=== PATIENT | female | born 1985 | race Caucasian/White ===

== ENCOUNTER 2020-04-20 19:30 | Inpatient (IN) | payer OTHER ==
--- OUTSIDE RECORDS SUMMARY | 2020-04-20 20:08 | XMS ---
:01/20/1988 Author Organization [facility] Support Name Relationship Address Phone BAR RADHA STEVENURANT Unavailable [address] [place] [address] SABI SAMUELS FAMILY/OTHER [address] [place] [address] Re-disclosure Warning The records that you are about to access may contain information from federally- assisted alcohol or drug abuse programs. If such information is present, then the following federally mandated warning applies: This information has been disclosed to you from records protected by federal confidentiality rules (42 CFR part 2). The federal rules prohibit you from making any further disclosure of this information unless further disclosure is expressly permitted by the written consent of the person to whom it pertains or as otherwise permitted by 42 CFR part 2. A general authorization for the release of medical or other information is NOT sufficient for this purpose. The Federal rules restrict any use of the information to criminally investigate or prosecute any alcohol or drug abuse patient.The records that you are about to access may contain highly sensitive health information, the redisclosure of which is protected by Article 27-F of the [facility] Public Health law. If you continue you may haveaccess to information: Regarding HIV / AIDS; Provided by facilities licensed or operated by the [facility] Office of Mental Health; or Provided by the [facility] Office for People With Developmental Disabilities. If such information is present, then the following [facility] mandated warning applies: This information has been disclosed to you from confidential records which are protected by state law. State law prohibits you from making any further disclosure of this information without the specific written consent of the person to whom it pertains, or as otherwise permitted by law. Any unauthorized further disclosure in violation of state law may result in a fine or mcfp sentence or both. A general authorization for the release of medical or other information is NOT sufficient authorization for further disclosure. Insurance Providers Payer name Policy type Policy ID Covered Covered libertarian's Policy P elena / Coverage libertarian ID relationship to [employer] Inf ormation type guerrero [facility] MEDICAID [id number] O
[2020-04-20] MEDS ORDERED: ONDANSETRON 4 MG/2 ML VIAL IVPB ONE (20:34)
[2020-04-20] MEDS ORDERED: METOCLOPRAMIDE HCL INJECTION 10 MG/2 ML VIAL IVPUSH ONE (20:36)
[2020-04-20] MEDS ORDERED: PANTOPRAZOLE SODIUM 40 MG/100 ML BAG IVPB ONE ×2 (20:36→21:02)
[2020-04-20] MEDS ORDERED: LACTATED RINGERS SOLUTION 1,000 ML IV SCH (20:45)
--- NOTE | 2020-04-20 20:54 | PDOC ---
Documentation entered by Kevin Khalil SCRIBE, acting as scribe for Joceline Spaulding MD. Joceline Spaulding MD: This documentation has been prepared by the scribe, Kevin Thorpe SCRIBE, under my direction and personally reviewed by me in its entirety. I confirm that the documentation accurately reflects all work, treatment, procedures, and medical decision making performed by me. Attending Attestation - Resident Resident Name: LeightonAbdias - ED Attending Attestation I have performed the following: I have examined & evaluated the patient, The case was reviewed & discussed with the resident, I agree w/resident's findings & plan, Exceptions are as noted - HPI HPI: 04/20/20 21:10 The patient is a 35 year old female with a significant past medical history of epigastric balloon placement 2 month ago (Dr. Hayes) who presents to the emergency department for evaluation of nausea/vomiting that began today. The patient reports abdominal pain and two episodes of diarrhea today. The patient denies chest/abdominal/back pain, cough, and shortness of breath. Denies fever, chills, or any symptoms. Denies any other symptoms. Allergies: NKA Surgical Hx: Epigastric balloon placement 2 month ago (Dr. Hayes) PCP: Dr. Betancourt - Physicial Exam PE: 04/20/20 20:37 GENERAL: Well developed, well nourished. HEENT: Normocephalic, atraumatic. PERRLA, EOMI. No conjunctival pallor. Sclera are non- icteric. Moist mucous membranes. Oropharynx is clear. NECK: Supple. Full ROM. No JVD. Carotid pulses 2+ and symmetric, without bruits. CARDIOVASCULAR: Regular rate and rhythm. No murmurs, rubs, or gallops. PULMONARY: No evidence of respiratory distress. Lungs clear to auscultation bilaterally. No wheezing, rales or rhonchi. ABDOMINAL: +epigastric tenderness Soft. No organomegaly. Normoactive bowel sounds. MUSCULOSKELETAL: Normal range of motion at all joints. No bony deformities or tenderness. No CVA tenderness. EXTREMITIES: No cyanosis. No clubbing. No edema. No calf tenderness. SKIN: Warm and dry. Normal capillary refill. No rashes. No jaundice. NEUROLOGICAL: Alert, awake, appropriate. Cranial nerves 2-12 intact. No deficits to light touch and temperature in face, upper extremities and lower extremities. No motor deficits in the in face, upper extremities and lower extremities. Normoreflexic in the upper and lower extremities. Normal speech. Toes are down-going bilaterally. Gait is normal without ataxia. PSYCHIATRIC: Cooperative. Good eye contact. Appropriate mood and affect. - Medical Decision Making 04/20/20 21:40 pt given IVF, zofran, protonix and will receive ct scan with contrast 04/21/20 00:22 pt was given po contrast just prior to ct scan . IMPRESSION of ct scan abdomen/pelvis w contrast : there is concern for gastric outlet obstruction because there an inflated balloon is present in the stomach over distended with dense oral contrast seen in the gastric fundus, no acute diverticulitis IUD in place K=2.9 and she was given Kdur case discussed with Dr Gerardo Artis who is covering for Dr Hayes. Earlier I left a message on Dr Hayes's cellphone pt is receiving IVF,zofran,protonix,reglan and is now NPO Admitted to med/surg 04/21/20 00:33 Discharge - Discharge Information Problems reviewed: Yes Clinical Impression/Diagnosis: Gastric outlet obstruction Condition: Stable - Follow up/Referral - Patient Discharge Instructions - Post Discharge Activity
[2020-04-20 20:55] LABS: BASO % 0.6 % (0-2.0); EOS % 1.2 % (0-4.5); HEMATOCRIT 42.6 % (32.4-45.2); HEMOGLOBIN 14.2 GM/dL (10.7-15.3); LYMPH % 24.8 % (8-40); MCH 28.6 pg (25.7-33.7); MCHC 33.3 g/dl (32.0-36.0); MEAN PLT VOLUME 11.4 fl (7.5-11.1); MONO % 7.4 % (3.8-10.2); PLATELET COUNT 165 K/MM3 (134-434); RBC 4.96 M/mm3 (3.60-5.2); RDW 15.7 % (11.6-15.6); WHITE BLOOD COUNT 7.6 K/mm3 (4.0-10.0)
--- NOTE | 2020-04-20 21:01 | PDOC ---
History of Present Illness - General Chief Complaint: Pain Stated Complaint: EVALUATION Time Seen by Provider: 04/20/20 20:31 History Source: Patient Exam Limitations: No Limitations - History of Present Illness Initial Comments: 04/20/20 20:52 35F s/p bariatric procedure (gastric balloon in December [address] Hayes) sent in by Dr. Hayes for worsening epigastric pain, n/v, and po intolerance. Symptoms been around since procedure but were unbearable today. Endorses poor PO intake and dizziness. Has not had etoh in a long time. Past History - Medical History Allergies/Adverse Reactions: Allergies Allergy/AdvReac Type Severity Reaction Status Date / Time No Known Allergies Allergy Verified 04/20/20 20:59 - Reproductive History Is Patient Now?: No - Psycho-Social/Smoking History Smoking History: Current every day smoker Number of Cigarettes Smoked Daily: 4 Information on smoking cessation initiated: Yes - Substance Abuse Hx (Audit-C & DAST Scrn) How often the patient has a drink containing alcohol: Never Score: In Men: 4 or > Positive; In Women: 3 or > Positive: 0 Screen Result (Pos requires Nsg. Audit-10AR): Negative In the last yr the pt used illegal drug/Rx for NonMed reason: No Score: Yes response is considered Positive: 0 Screen Result (Positive result requires Nsg. DAST-10): Negative Review of Systems - Review of Systems Comments:: CONSTITUTIONAL: Denies F / C HEENT: + lightheadedness. Denies headache, sore throat, rhinorrhea RESP: Denies SOB, cough CARD: Denies chest pain GI: + epigastric pain, n/v. Denies diarrhea, bloody stool : Denies dysuria, hematuria, frequency. Denies vaginal bleeding or discharge. NEURO: Denies numbness, tingling, weakness MSK: Denies back pain SKIN: Denies rashes *Physical Exam - Vital Signs Last Vital Signs Temp Pulse Resp BP Pulse Ox 98.1 F 90 20 107/75 100 04/20/20 19:48 04/20/20 19:48 04/20/20 19:48 04/20/20 19:48 04/20/20 19:48 - Physical Exam GEN: Well appearing, NAD, comfortable. AAOx3. HEENT: NC/AT, EOMI, PERRL. Normal voice. Supple neck w/ FROM. CV: S1/S2, RRR, no m/r/g LUNG: CTAB, no wheezes, crackles, rales, rhonchi. GI: normoactive BS, nondistended, epigastric tenderness w/ guarding. MSK: No obvious deformities of all extremities. SKIN: Warm, dry, no rashes appreciated. PSYCH: Normal mood and affect. pleasant. NEURO: Moving all extremities well. ED Treatment Course - LABORATORY CBC & Chemistry Diagram: 04/20/20 20:44 04/20/20 20:44 Medical Decision Making - Medical Decision Making 35F sent in by Dr. Hayes for evaluation of acute worsening of chronic epigastric pain, n/v. Severely reduced PO intake. Lightheadedness. Sx existed after bariatric procedure in December 2019 but were milder. Epigastric TTP. Lightheadedness most likely 2/2 decreased PO intake and vomiting. - CBC, CMP, Lipase, - CT A/P - fluids, antiemetics, and protonix - EKG - admit 04/20/20 21:26 EKG 21:25 HR 67, NSR, interval and axis nl, no LEATHA/D, flat Ts III, aVF, and V3; poor baseline for V3-V6. 04/20/20 22:30 Pt was signed out to PM team for further management Discharge - Discharge Information Problems reviewed: Yes Clinical Impression/Diagnosis: Gastric outlet obstruction Condition: Stable - Follow up/Referral Referrals: Shruthi Betancourt MD [Primary Care Provider] - - Patient Discharge Instructions - Post Discharge Activity
[2020-04-20 21:21] LABS: ALBUMIN 4.1 g/dl (3.4-5.0); BILIRUBIN,TOTAL 0.5 mg/dL (0.2-1); BLOOD UREA NITROGEN 16.2 mg/dL (7-18); CALCIUM 9.4 mg/dL (8.5-10.1); TOT PROT 8.3 g/dl (6.4-8.2)
[2020-04-20] MEDS ORDERED: POTASSIUM CHLORIDE 20 MEQ PREMIX IVPB 100 ML IVPB ONE (21:31)
[2020-04-20 21:32] LABS: POTASSIUM 2.9 mmol/L (3.5-5.1)
--- NOTE | 2020-04-20 22:27 | PDOC ---
*Physical Exam - Vital Signs Last Vital Signs Temp Pulse Resp BP Pulse Ox 98.1 F 90 20 107/75 100 04/20/20 19:48 04/20/20 19:48 04/20/20 19:48 04/20/20 19:48 04/20/20 19:48 ED Treatment Course - LABORATORY CBC & Chemistry Diagram: 04/20/20 20:44 04/20/20 20:44 - ADDITIONAL ORDERS Additional order review: Laboratory Results 04/20/20 04/20/20 20:44 20:44 Sodium 134 L Potassium 2.9 L* Chloride 88 L Carbon Dioxide 37 H Anion Gap 8 BUN 16.2 Creatinine 1.0 Est GFR (CKD-EPI)AfAm 84.53 Est GFR (CKD-EPI)NonAf 72.93 Random Glucose 88 Calcium 9.4 Total Bilirubin 0.5 AST 23 ALT 36 Alkaline Phosphatase 61 Total Protein 8.3 H Albumin 4.1 Lipase 149 Serum , Qual Negative 04/20/20 20:44 RBC 4.96 MCV 86.0 MCHC 33.3 RDW 15.7 H MPV 11.4 H Neutrophils % 66.0 Lymphocytes % 24.8 Monocytes % 7.4 Eosinophils % 1.2 Basophils % 0.6 - Medications Given in the ED: ED Medications Discontinued Medications Generic Name Dose Route Start Last Admin Trade Name Freq PRN Reason Stop Dose Admin Pantoprazole Sodium 40 mg in 100 mls @ 200 mls/hr 04/20/20 20:36 04/20/20 21:34 Protonix 40mg Ivpb (Pre-Docked) IVPB 04/20/20 21:05 200 mls/hr ONCE ONE Administration Metoclopramide HCl 10 mg 04/20/20 20:36 04/20/20 21:09 Reglan Injection - IVPUSH 04/20/20 20:37 10 mg ONCE ONE Administration Ondansetron HCl 4 mg 04/20/20 20:34 04/20/20 21:09 Zofran Injection IVPB 04/20/20 20:35 4 mg ONCE ONE Administration Medical Decision Making - Medical Decision Making 04/20/20 22:25 35F s/p bariatric procedure (gastric balloon in December [address] Hayes) sent in by Dr. Hayes for worsening epigastric pain, n/v, and po intolerance. Symptoms been around since procedure but were unbearable today. Endorses poor PO intake and dizziness. Epigastric TTP K 2.9 -Repleted []CTAP>Lantin, likely admit 04/20/20 23:21 CTAP: inflated balloon is present in the stomach that is over distended with dense oral contrast seen in the gastric fundus. Hyperdense oral contrast in gastic antrum is due to recent intake of small amount of oral contrast that is not extending to gastric antrum or beyond level of balloon suggestive of obstruction at level of balloon. Diverticulosis coli without evidence of acute diverticulitis. IUD in place. Prominent vessels in lower pelvis suggestive of pelvic venous congestion syndrome. Dr Spaulding spoke with Dr Gerardo Artis Concern for gastric outlet obstruction Admit Discharge - Discharge Information Problems reviewed: Yes Clinical Impression/Diagnosis: Gastric outlet obstruction Condition: Stable - Admission Yes - Follow up/Referral Referrals: Shruthi Betancourt MD [Primary Care Provider] - - Patient Discharge Instructions - Post Discharge Activity
[2020-04-20] MEDS ORDERED: KCL 10 MEQ IVPB 20 MEQ/200 ML INFUS.BAG IVPB ONE (22:41)
[2020-04-20] MEDS: KCL 10 MEQ IVPB 10 MEQ/100 ML INFUS.BAG IVPB SCH ×2 (23:09→23:29)
[2020-04-20] MEDS ORDERED: POTASSIUM CHLORIDE TABS 20 MEQ TABLET.ER (FP) PO ONE ×2 (23:20→23:30)
[2020-04-21] MEDS ORDERED: DEXTROSE 5%-LACTATED RINGERS 1,000 ML IV SCH (00:15)
--- NOTE | 2020-04-21 00:33 | PN ---
Teaching Attending Note Name of Resident: Carolyn Velásquez ATTENDING PHYSICIAN STATEMENT I saw and evaluated the patient. I reviewed the resident's note and discussed the case with the resident. I agree with the resident's findings and plan as documented. SUBJECTIVE: 35yoF with obesity s/p intragastric balloon 01/11/[address] Hayes who presents with vomiting and lightheadedness. Patient reports she has had daily emesis since the procedure, usually once in the mornings that looked like undigested food. Yesterday she had worsening abdominal pain and increasing frequency of emesis, was unable to tolerate sips of fluids. [place] lightheaded while at work but no syncope, shortness of breath, fevers, or diarrhea. Last BM about 4 days ago which is normal for her. Notes about 60lb weight loss since the procedure, initial plan was to remove the balloon after 6 months. Labs notable for sodium 134, potassium 2.9. CT abd/pelvis with PO and IV contrast showed over distended stomach wtih inflated balloon and dense oral contrast in the gastric fundus. Received Reglan and Zofran with improvement in nausea and vomiting. ED discussed case with GI, patient admitted for management of gastric outlet obstruction. OBJECTIVE: Vital Signs - 24 hr 04/20/20 04/20/20 04/21/20 19:48 22:44 03:00 Temperature 98.1 F Pulse Rate 90 Pulse Rate [ 71 76 Right Radial] Respiratory 20 18 Rate Blood Pressure 107/75 Blood Pressure 104/68 98/67 [Left Arm] O2 Sat by Pulse 100 100 96 Oximetry (%) EXAM Gen: awake, alert, NAD HEENT: MMM CV: RRR, no MRG Resp: CTAB, unlabored Abd: Soft, NT, ND. +BS throughout. Balloon palpable epigastric area Ext: no edema Derm: No rash Psych: AOx3 Laboratory Results - last 24 hr 04/20/20 04/20/20 04/20/20 20:44 20:44 20:44 WBC 7.6 RBC 4.96 Hgb 14.2 Hct 42.6 MCV 86.0 MCH 28.6 MCHC 33.3 RDW 15.7 H Plt Count 165 MPV 11.4 H Absolute Neuts (auto) 5.0 Neutrophils % 66.0 Lymphocytes % 24.8 Monocytes % 7.4 Eosinophils % 1.2 Basophils % 0.6 Nucleated RBC % 0 Sodium 134 L Potassium 2.9 L* Chloride 88 L Carbon Dioxide 37 H Anion Gap 8 BUN 16.2 Creatinine 1.0 Est GFR (CKD-EPI)AfAm 84.53 Est GFR (CKD-EPI)NonAf 72.93 Random Glucose 88 Calcium 9.4 Total Bilirubin 0.5 AST 23 ALT 36 Alkaline Phosphatase 61 Total Protein 8.3 H Albumin 4.1 Lipase 149 Serum , Qual Negative Imaging reviewed in chart ASSESSMENT AND PLAN: 35yoF with obesity s/p intragastric balloon 01/11/[address] Hayes who presents with vomiting and lightheadedness, admitted with gastric outlet obstruction. Gastric outlet obstruction secondary to intragastric balloon Acute worsening of chronic nausea/vomiting Vomiting resolved s/p antiemetics Patient prefers to have the balloon removed - NPO - Zofran PRN - continue IVF - GI consulted Hypokalemia In setting of acute on chronic emesis s/p potassium in ED - rpt K in AM - check mag level - replete as needed DVT ppx: SCD pending possible procedure
--- OUTSIDE RECORDS SUMMARY | 2020-04-21 01:25 | XMS ---
:1985 Demographics Address [address] [place] [address] Preferred Language Unknown Marital Status Unknown Holiness Affiliation NO Race WHH Ethnic Group Unknown Author Organization [facility] Support Name Relationship Address Phone BAR RADHA GORDON Unavailable [address] [place] [address] SABI SAMUELS FAMILY/OTHER [address] [place] [address] Re-disclosure Warning The records that you are [...] is protected by Article 27-F of the [facility] Public Health law. If you continue you may haveaccess to information: Regarding HIV / AIDS; Provided by facilities licensed or operated by the [facility] Office of Mental Health; or Provided by the [facility] Office for People With Developmental Disabilities. If such information is present, then the following [facility] mandated warning applies: This information has been [...] law may result in a fine or mcc sentence or both. A general authorization for the release of medical or other information is NOT sufficient authorization for further disclosure. Insurance Providers Payer name Policy type Policy ID Covered Covered democrat's Policy P elena / Coverage democrat ID relationship to [employer] Inf ormation type guerrero [facility] MEDICAID [id number] O
--- NOTE | 2020-04-21 03:16 | HP ---
CHIEF COMPLAINT: nausea and vomiting HISTORY OF PRESENT ILLNESS: Sandro Hermosillo is a 35 year old woman no prior PMH who is presenting with worsening nausea and vomiting. She states that since undergoing epigastric balloon placement for weight loss with Dr. Hayes in December 2019 she has been vomiting after at least 1 meal per day, and has lost 65 pounds, currently at her goal weight. However, she reports that yesterday her nausea and vomiting worsened, and she has not been able to keep down her meals for the past 2 days. She has felt lightheaded, very dehydrated, and like she was going to 'pass out'. Reports no falls. Denies fever, chills, headache, abdominal pain, melena, hematochezia. She has been taking ondansetron, metoclopramide, pantoprazole at home, prescribed by Dr. Hayes, with minimal relief of symptoms. ER course was notable for: - T 98, pulse 90, BP 104/68, O2 sat 100 - Labs revealing hyponatremia 134, hypokalemia 2.9 - Given fluids, zofran, protonix, reglan - CT scan revealing inflated balloon appearing overdistended; diverticulosis PAST MEDICAL HISTORY: None PAST SURGICAL HISTORY: Epigastric balloon placement by Dr. Hayes January 10 Social History: Smoking: Yes, 4 cigarettes/day Alcohol: Social Drugs: Marijuana, prior cocaine use Allergies No Known Allergies Allergy (Verified 04/20/20 20:59) HOME MEDICATIONS: Home Medications Medication Instructions Recorded Metoclopramide HCl 0 mg PO DAILY 04/21/20 Ondansetron [Zofran -] 4 mg PO DAILY 04/21/20 Pantoprazole Sodium 0 mg PO DAILY 04/21/20 REVIEW OF SYSTEMS SEE HPI PHYSICAL EXAMINATION Vital Signs - 24 hr 04/20/20 04/20/20 04/21/20 19:48 22:44 03:00 Temperature 98.1 F Pulse Rate 90 Pulse Rate [ 71 76 Right Radial] Respiratory 20 18 Rate Blood Pressure 107/75 Blood Pressure 104/68 98/67 [Left Arm] O2 Sat by Pulse 100 100 96 Oximetry (%) GENERAL: Awake, alert, and fully oriented, in no acute distress. HEAD: Normal with no signs of trauma. EYES: Pupils equal, round and reactive to light, extraocular movements intact, sclera anicteric EARS, NOSE, THROAT: Ears normal, nares patent, oropharynx clear without exudates. Dry mucous membranes. LUNGS: Breath sounds equal, clear to auscultation bilaterally. No wheezes, and no crackles. No accessory muscle use. HEART: Regular rate and rhythm, normal S1 and S2 without murmur, rub or gallop. ABDOMEN: Soft, mild RUQ tenderness to palpation. no guarding, no rebound, no masses. MUSCULOSKELETAL: Normal range of motion at all joints. No bony deformities or tenderness. UPPER EXTREMITIES: 2+ pulses, warm, well-perfused. LOWER EXTREMITIES: 2+ pulses, warm, well-perfused. No calf tenderness. No peripheral edema. PSYCHIATRIC: Cooperative. Good eye contact. Appropriate mood and affect. Laboratory Results - last 24 hr 04/20/20 04/20/20 04/20/20 20:44 20:44 20:44 WBC 7.6 RBC 4.96 Hgb 14.2 Hct 42.6 MCV 86.0 MCH 28.6 MCHC 33.3 RDW 15.7 H Plt Count 165 MPV 11.4 H Absolute Neuts (auto) 5.0 Neutrophils % 66.0 Lymphocytes % 24.8 Monocytes % 7.4 Eosinophils % 1.2 Basophils % 0.6 Nucleated RBC % 0 Sodium 134 L Potassium 2.9 L* Chloride 88 L Carbon Dioxide 37 H Anion Gap 8 BUN 16.2 Creatinine 1.0 Est GFR (CKD-EPI)AfAm 84.53 Est GFR (CKD-EPI)NonAf 72.93 Random Glucose 88 Calcium 9.4 Total Bilirubin 0.5 AST 23 ALT 36 Alkaline Phosphatase 61 Total Protein 8.3 H Albumin 4.1 Lipase 149 Serum , Qual Negative ASSESSMENT/PLAN: Sandro Hermosillo is a 35 year old woman no prior PMH who is presenting with worsening nausea and vomiting and CT scan revealing overdistended balloon in stomach, admitted with gastric outlet obstruction. Gastric outlet obstruction - CT revealing overdistended balloon in stomach - Patient wishes to have balloon removed due to excessive nausea, vomiting - Dr. Hayes consulted - Continue Protonix - NPO Hypokalemia - K 2.9 on admission - Give KCl 10 meq iv; twice, total of 20 mEq - F/u magnesium level, replete as needed - Monitor potassium DVT prophylaxis: SCDs FEN - LR @ 75 mls/h - Replete K, f/u magnesium level - NPO Dispo: Med/surg ATTENDING PHYSICIAN STATEMENT I saw and evaluated the patient. I reviewed the resident's note and discussed the case with the resident. I agree with the resident's findings and plan as documented. SUBJECTIVE: OBJECTIVE: ASSESSMENT AND PLAN:
[2020-04-21] MEDS ORDERED: POTASSIUM CHLORIDE 20 MEQ PREMIX IVPB 100 ML IVPB ONE (03:57)
[2020-04-21] MEDS ORDERED: LACTATED RINGERS SOLUTION 1,000 ML IV SCH (04:00)
[2020-04-21] MEDS ORDERED: LACTATED RINGERS SOLUTION 1,000 ML/1,000 ML INFUS.BAG IV SCH (04:15)
[2020-04-21 04:37] LABS: MAGNESIUM 2.2 mg/dL (1.8-2.4)
[2020-04-21] MEDS: KCL 10 MEQ IVPB 10 MEQ/100 ML INFUS.BAG IVPB SCH ×5 (04:58→13:09)
[2020-04-21] MEDS ORDERED: MAGNESIUM SULF 50% (8.12 MEQ/2 ML-1 GM VIAL) IVPB ONE (06:15)
[2020-04-21 07:10] LABS: BASO % 4.5 % (0-2.0); EOS % 1.4 % (0-4.5); HEMATOCRIT 40.4 % (32.4-45.2); LYMPH % 25.3 % (8-40); MCH 27.7 pg (25.7-33.7); MCHC 32.3 g/dl (32.0-36.0); MEAN CELL VOLUME 85.7 fl (80-96); MEAN PLT VOLUME 11.1 fl (7.5-11.1); NEUT % 61.8 % (42.8-82.8); PLATELET COUNT 156 K/MM3 (134-434); RBC 4.71 M/mm3 (3.60-5.2); RDW 15.5 % (11.6-15.6); WHITE BLOOD COUNT 6.7 K/mm3 (4.0-10.0)
[2020-04-21 07:38] LABS: ALBUMIN 3.6 g/dl (3.4-5.0); BILIRUBIN,TOTAL 0.5 mg/dL (0.2-1); CREATININE 0.8 mg/dL (0.55-1.3); MAGNESIUM 2.3 mg/dL (1.8-2.4); POTASSIUM 3.1 mmol/L (3.5-5.1); TOT PROT 7.1 g/dl (6.4-8.2)
--- NOTE | 2020-04-21 08:47 | EKG ---
Test Reason : Blood Pressure : / mmHG Vent. Rate : 067 BPM Atrial Rate : 067 BPM P-R Int : 162 ms QRS Dur : 086 ms QT Int : 442 ms P-R-T Axes : 048 000 014 degrees QTc Int : 467 ms NORMAL SINUS RHYTHM CANNOT RULE OUT ANTERIOR INFARCT , AGE UNDETERMINED ABNORMAL ECG NO PREVIOUS ECGS AVAILABLE Confirmed by Spike Cramer MD ([id number]) on 04/21/2020 8:46:34 AM Referred By: Confirmed By:Spike Cramer MD
--- NOTE | 2020-04-21 09:10 | CON.GI ---
Consult Consult Specialty:: gastroenterology Reason for Consultation:: nausea and vomiting s/p intragastric balloon placement - History of Present Illness Chief Complaint: nausea and vomiting History of Present Illness: Pt seen and examined at bedside. Sandro Hermosillo is a 35 year old woman no prior PMH who is presenting with worsening nausea and vomiting s/p intragastric balloon placement for weight loss in December 2019 she has been vomiting after at least 1 meal per day, and has lost 65 pounds, currently at her goal weight. However, she reports that y esterday her nausea and vomiting worsened, and she has not been able to keep down her meals for the past 2 days. She has felt lightheaded, very dehydrated, and like she was going to 'pass out'. Reports no falls. Denies fever, chills, headache, abdominal pain, melena, hematochezia. She has been taking ondansetron, metoclopramide, pantoprazole with minimal relief of symptoms. - History Source History Provided By: Patient Limitations to Obtaining History: No Limitations - Past Medical History ...LMP: 03/22/20 ...: No - Smoking History Smoking history: Current every day smoker Aproximately how many cigarettes per day: 4 Home Medications - Allergies Allergies/Adverse Reactions: Allergies Allergy/AdvReac Type Severity Reaction Status Date / Time No Known Allergies Allergy Verified 04/20/20 20:59 - Home Medications Home Medications: Ambulatory Orders Metoclopramide HCl 0 mg PO DAILY 04/21/20 Ondansetron [Zofran -] 4 mg PO DAILY 04/21/20 Pantoprazole Sodium 0 mg PO DAILY 04/21/20 Review of Systems - Review of Systems Constitutional: reports: No Symptoms Eyes: reports: No Symptoms HENT: reports: No Symptoms Neck: reports: No Symptoms Cardiovascular: reports: No Symptoms Respiratory: reports: No Symptoms Gastrointestinal: reports: Abdominal Pain, Nausea Physical Exam-GI Vital Signs: Vital Signs Temperature 98.5 F 04/21/20 03:56 Pulse Rate 80 04/21/20 03:56 Respiratory Rate 18 04/21/20 03:56 Blood Pressure 99/72 04/21/20 03:56 O2 Sat by Pulse Oximetry (%) 96 04/21/20 03:56 Constitutional: Yes: No Distress, Calm Eyes: Yes: Conjunctiva Clear, EOM Intact HENT: Yes: Atraumatic, Normocephalic Neck: Yes: Supple, Trachea Midline Cardiovascular: Yes: Regular Rate and Rhythm Respiratory: Yes: Regular, CTA Bilaterally Gastrointestinal Inspection: Yes: WNL ...Auscultate: Yes: Normoactive Bowel Sounds ...Palpate: Yes: Soft, Tenderness, Epigastium. No: Firm/Rigid, Guarding, Hepatomegaly, Mass, Pulsatile Mass Labs: CBC, BMP 04/21/20 06:44 04/21/20 06:44 Problem List - Problems (1) Gastric outlet obstruction Assessment/Plan: gastric outlet obstruction secondary to intragastric balloon Patient wishes to have balloon removed due to excessive nausea, vomiting -LR increased to 150cc/hr - Continue Protonix - NPO Code(s): K31.1 - ADULT HYPERTROPHIC PYLORIC STENOSIS
[2020-04-21] MEDS: LACTATED RINGERS SOLUTION 1,000 ML IV SCH ×3 (10:19→23:20)
--- NOTE | 2020-04-21 14:33 | PN ---
Teaching Attending Note Name of Resident: Jm Talavera ATTENDING PHYSICIAN STATEMENT I saw and evaluated the patient. I reviewed the resident's note and discussed the case with the resident. I agree with the resident's findings and plan as documented. SUBJECTIVE: Seen and examined at bedside. NG tube in place. Patient reports nausea has imp roved since placement of NG tube. Plan to take gastric balloon out per Dr. Hayes OBJECTIVE Last Vital Signs Temp Pulse Resp BP Pulse Ox 98 F 66 20 103/71 99 04/21/20 13:53 04/21/20 13:53 04/21/20 13:53 04/21/20 13:53 04/21/20 13:53 PE: Per resident note Labs/Imaging: reviewed ASSESSMENT/PLAN 35-year-old woman with past medical history of intragastric balloon placed this summer with chronic nausea and vomiting since, who presents with increased nausea and vomiting and unable to keep down any food as well as dizziness, lightheadedness and feeling faint. Patient found to have gastric outlet obstruction #Gastric outlet obstruction In the setting of gastric balloon placement Dr. Brown on board: Appreciate recommendations Removal of gastric balloon NG tube in place for now Fluids #Hypokalemia 2/2 GI losses -replete -f/u K+ #Elevated bicarb (likely metabolic alcalosis -likely 2/2 GI losses -trend bicarb, if downtrending no need for further workup -replete fluids/chloride DVTppx: not indicated 2/2 age
--- NOTE | 2020-04-21 18:25 | PN ---
Physical Exam: SUBJECTIVE: Patient seen and examined at bedside. Denies any nausea or vomiting. OBJECTIVE: Vital Signs Period Temp Pulse Resp BP Sys/Chamorro Pulse Ox Last 24 Hr 98 F-98.5 F 66-90 18-20 98-107/67-75 96-100 NAD AAOx3 AT/NC. NGt in place. RRR No MRG S1S2 CTAB No wheezing rales or rhonchi NDNT, No guarding or rigidity. No CCE Laboratory Results - last 24 hr 04/20/20 04/20/20 04/20/20 20:44 20:44 20:44 WBC 7.6 RBC 4.96 Hgb 14.2 Hct 42.6 MCV 86.0 MCH 28.6 MCHC 33.3 RDW 15.7 H Plt Count 165 MPV 11.4 H Absolute Neuts (auto) 5.0 Neutrophils % 66.0 Lymphocytes % 24.8 Monocytes % 7.4 Eosinophils % 1.2 Basophils % 0.6 Nucleated RBC % 0 Sodium 134 L Potassium 2.9 L* Chloride 88 L Carbon Dioxide 37 H Anion Gap 8 BUN 16.2 Creatinine 1.0 Est GFR (CKD-EPI)AfAm 84.53 Est GFR (CKD-EPI)NonAf 72.93 Random Glucose 88 Calcium 9.4 Magnesium 2.2 Total Bilirubin 0.5 AST 23 ALT 36 Alkaline Phosphatase 61 Total Protein 8.3 H Albumin 4.1 Lipase 149 Serum , Qual Negative 04/21/20 04/21/20 06:44 06:44 WBC 6.7 RBC 4.71 Hgb 13.0 Hct 40.4 MCV 85.7 MCH 27.7 MCHC 32.3 RDW 15.5 Plt Count 156 MPV 11.1 Absolute Neuts (auto) 4.1 Neutrophils % 61.8 Lymphocytes % 25.3 Monocytes % 7.0 Eosinophils % 1.4 Basophils % 4.5 H D Nucleated RBC % 0 Sodium 135 L Potassium 3.1 L Chloride 90 L Carbon Dioxide 36 H Anion Gap 8 BUN 12.0 Creatinine 0.8 Est GFR (CKD-EPI)AfAm 110.70 Est GFR (CKD-EPI)NonAf 95.52 Random Glucose 81 Calcium 9.0 Magnesium 2.3 Total Bilirubin 0.5 AST 18 ALT 30 Alkaline Phosphatase 60 Total Protein 7.1 Albumin 3.6 Lipase Serum , Qual Active Medications Generic Name Dose Route Start Last Admin Trade Name Freq PRN Reason Stop Dose Admin Lactated Ringer's 1,000 mls @ 150 mls/hr 04/21/20 09:05 04/21/20 16:14 Lactated Ringers Solution IV 150 mls/hr ASDIR [facility] Administration ASSESSMENT/PLAN: Sandro Hermosillo is a 35 year old woman no prior PMH who is presenting with worsening nausea and vomiting and CT scan revealing overdistended balloon in stomach, admitted with gastric outlet obstruction. Gastric outlet obstruction - CT revealing overdistended balloon in stomach - Patient wishes to have balloon removed due to excessive nausea, vomiting - Dr. Hayes consulted. -LR increased to 150cc/hr - Continue Protonix - NPO Hypokalemia - K 2.9 on admission. Repleated. Continue to monitor and replete as needed. DVT prophylaxis: SCDs FEN - LR@150cc/hr - Monitor Electrolytes - NPO Dispo: Med/surg Visit type - Emergency Visit Emergency Visit: Yes ED Registration Date: 04/21/20 Care time: The patient presented to the Emergency Department on the above date and was hospitalized for further evaluation of their emergent condition. - New Patient This patient is new to me today: Yes Date on this admission: 04/21/20 - Critical Care Critical Care patient: No - Discharge Referral Referred to [facility] Med P.C.: No ATTENDING PHYSICIAN STATEMENT I saw and evaluated the patient. I reviewed the resident's note and discussed the case with the resident. I agree with the resident's findings and plan as documented. SUBJECTIVE: OBJECTIVE: ASSESSMENT AND PLAN:
[2020-04-22] MEDS ORDERED: SUCCINYLCHOLINE CHLORIDE 200 MG/10 ML SYRINGE ONE (07:08)
[2020-04-22] MEDS ORDERED: PROPOFOL 20 ML ONE (07:08)
[2020-04-22] MEDS ORDERED: LIDOCAINE HCL/PF 2% SDV 5ML VIAL ONE (07:19)
[2020-04-22] MEDS ORDERED: DEXAMETHASONE SOD PHOSPHATE 4 MG/1 ML VIAL ONE (07:19)
[2020-04-22] MEDS ORDERED: ONDANSETRON 4 MG/2 ML VIAL IVPUSH PRN (08:13)
--- NOTE | 2020-04-22 11:21 | PN.GI ---
GI Progress Note Subjective: pt s/p intragastric balloon removal today. Denies nausea, abdominal pain. - Objective Vital Signs: Vital Signs Temperature 98.2 F 04/22/20 09:16 Pulse Rate 71 04/22/20 09:16 Respiratory Rate 19 04/22/20 09:16 Blood Pressure 118/72 04/22/20 09:16 O2 Sat by Pulse Oximetry (%) 98 04/22/20 09:16 Constitutional: Well Nourished, No Distress, Calm Eyes: Yes: WNL, Conjunctiva Clear, EOM Intact HENT: Yes: WNL, Atraumatic, Normocephalic Neck: Yes: WNL, Supple, Trachea Midline Cardiovascular: Yes: WNL, Regular Rate and Rhythm Respiratory: Yes: WNL, Regular, CTA Bilaterally Gastrointestinal Inspection: Yes: WNL ...Auscultate: Yes: Normoactive Bowel Sounds ...Palpate: Yes: Soft. No: Firm/Rigid, Guarding, Hepatomegaly, Mass, Pulsatile Mass, Splenomegaly, Tenderness, Tenderness, Epigastium, Tenderness, Rebound Labs: CBC, BMP 04/21/20 06:44 04/21/20 06:44 Problem List - Problems (1) Gastric outlet obstruction Assessment/Plan: gastric outlet obstruction secondary to intragastric balloon -s/p balloon removal today - Continue Protonix -start reglan -start clear liquid diet -if pt tolerates clear liquid will plan d/c Code(s): K31.1 - ADULT HYPERTROPHIC PYLORIC STENOSIS
--- NOTE | 2020-04-22 15:16 | PN ---
Teaching Attending Note Name of Resident: Jm Talavera ATTENDING PHYSICIAN STATEMENT I saw and evaluated the patient. I reviewed the resident's note and discussed the case with the resident. I agree with the resident's findings and plan as documented. SUBJECTIVE: Seen and examined at bedside. Balloon removed this morning without complication . Patient started on clear liquid diet OBJECTIVE Last Vital Signs Temp Pulse Resp BP Pulse Ox 98.2 F 71 20 106/57 L 99 04/22/20 14:31 04/22/20 14:31 04/22/20 14:31 04/22/20 14:31 04/22/20 14:31 PE: Per resident note Labs/Imaging: reviewed ASSESSMENT/PLAN 35-year-old woman with past medical history of intragastric balloon placed this summer with chronic nausea and vomiting since, who presents with increased nausea and vomiting and unable to keep down any food as well as dizziness, lightheadedness and feeling faint. Patient found to have gastric outlet obstruction #Gastric outlet obstruction In the setting of gastric balloon placement. Status post removal 05/02/2029switch to clear liquid diet Patient tolerates clear liquid diet plan for discharge tomorrow Dr. Brown on board: Appreciate recommendations #Hypokalemia 2/2 GI losses -replete -f/u K+ #Elevated bicarb (likely metabolic alcalosis -likely 2/2 GI losses -trend bicarb, if downtrending no need for further workup -replete fluids/chloride DVTppx: not indicated 2/2 age
--- NOTE | 2020-04-22 16:42 | PN ---
Physical Exam: SUBJECTIVE: Patient seen and examined at bedside. S/p Balloon removal with Dr Hayes. Denies any complaints. OBJECTIVE: Vital Signs Period Temp Pulse Resp BP Sys/Chamorro Pulse Ox Last 24 Hr 98.1 F-98.4 F 59-79 14-20 95-118/56-78 95-100 No acute distress AT/NC. RRR No MRG S1S2 CTAB No wheezing rales or rhonchi NDNT, No guarding or rigidity. No CCE Laboratory Results - last 24 hr 04/21/20 02:30 COVID-19 (LUIS) Not detected Active Medications Generic Name Dose Route Start Last Admin Trade Name Freq PRN Reason Stop Dose Admin Fentanyl 50 mcg 04/22/20 08:13 Sublimaze Injection - IVPUSH [id number] PRN PAIN-PACU ORDER X 4 DOSES ONLY Lactated Ringer's 1,000 mls @ 150 mls/hr 04/21/20 09:05 04/21/20 23:20 Lactated Ringers Solution IV 150 mls/hr ASDIR ÓSCAR Administration Metoclopramide HCl 5 mg 04/22/20 16:45 Reglan - PO TIDAC ÓSCAR Ondansetron HCl 4 mg 04/22/20 08:13 Zofran Injection IVPUSH Q6H PRN NAUSEA AND/OR VOMITING ASSESSMENT/PLAN: Sandro Hermosillo is a 35 year old woman no prior PMH who is presenting with worsening nausea and vomiting and CT scan revealing overdistended balloon in stomach, admitted with gastric outlet obstruction. Gastric outlet obstruction s/p intragastric balloon removal - CT revealing overdistended balloon in stomach - Dr. Hayes---> Protonix, Reglan, Clear liquid Diet - Continue Protonix DVT prophylaxis: SCDs FEN - LR@150cc/hr - Monitor Electrolytes - Clears Dispo: Likely D/C in am Visit type - Emergency Visit Emergency Visit: Yes ED Registration Date: 04/21/20 Care time: The patient presented to the Emergency Department on the above date and was hospitalized for further evaluation of their emergent condition. - New Patient This patient is new to me today: No - Critical Care Critical Care patient: No - Discharge Referral Referred to [facility] Med P.C.: No ATTENDING PHYSICIAN STATEMENT I saw and evaluated the patient. I reviewed the resident's note and discussed the case with the resident. I agree with the resident's findings and plan as documented. SUBJECTIVE: OBJECTIVE: ASSESSMENT AND PLAN:
[2020-04-22] MEDS: METOCLOPRAMIDE HCL 10 MG TABLET (FP) PO SCH (17:40)
[2020-04-22] MEDS: NICOTINE 7 MG/24 HOURS TOPICAL PATCH TD SCH (17:41)
[2020-04-22] MEDS: LACTATED RINGERS SOLUTION 1,000 ML IV SCH (17:41)
[2020-04-23] MEDS ORDERED: ACETAMINOPHEN 325 MG TABLET (FP) PO ONE (00:13)
[2020-04-23] MEDS ORDERED: MORPHINE SULFATE 2 MG/ML VIAL IVPUSH ONE ×2 (03:51→05:27)
[2020-04-23] MEDS: KCL 10 MEQ IVPB 10 MEQ/100 ML INFUS.BAG IVPB SCH ×3 (06:16→09:27)
[2020-04-23] MEDS: METOCLOPRAMIDE HCL 10 MG TABLET (FP) PO SCH (06:16)
[2020-04-23 06:24] LABS: BASO % 0.4 % (0-2.0); EOS % 0.7 % (0-4.5); HEMOGLOBIN 12.6 GM/dL (10.7-15.3); LYMPH % 25.6 % (8-40); MCH 28.2 pg (25.7-33.7); MCHC 33.1 g/dl (32.0-36.0); MEAN CELL VOLUME 85.1 fl (80-96); MEAN PLT VOLUME 11.7 fl (7.5-11.1); MONO % 7.2 % (3.8-10.2); NEUT % 66.1 % (42.8-82.8); PLATELET COUNT 153 K/MM3 (134-434); RBC 4.47 M/mm3 (3.60-5.2); RDW 15.6 % (11.6-15.6); WHITE BLOOD COUNT 8.9 K/mm3 (4.0-10.0)
[2020-04-23 06:49] LABS: ALBUMIN 3.2 g/dl (3.4-5.0); ALK PHOS 54 U/L (45-117); ANION GAP 7 MMOL/L (8-16); BILIRUBIN,TOTAL 0.4 mg/dL (0.2-1); BLOOD UREA NITROGEN 4.9 mg/dL (7-18); CALCIUM 8.1 mg/dL (8.5-10.1); CHLORIDE 105 mmol/L (98-107); CO2 29 mmol/L (21-32); CREATININE 0.6 mg/dL (0.55-1.3); GLUCOSE,RANDOM 96 mg/dL (74-106); MAGNESIUM 1.8 mg/dL (1.8-2.4); PHOSPHOROUS 1.5 mg/dL (2.5-4.9); POTASSIUM 3.4 mmol/L (3.5-5.1); SGOT/AST 20 U/L (15-37); SGPT/ALT 29 U/L (13-61); SODIUM 141 mmol/L (136-145); TOT PROT 6.6 g/dl (6.4-8.2)
[2020-04-23] MEDS ORDERED: POTASSIUM CHLORIDE TABS 20 MEQ TABLET.ER (FP) PO ONE (07:30)
[2020-04-23] MEDS ORDERED: VANCOMYCIN 1,000 MG in DEXTROSE 5%-WATER - 250 ML IVPB ONE ×2 (07:45→07:56)
[2020-04-23] MEDS ORDERED: PIPERACILLIN/TAZOB 3.375 GM 3.375 GM in DEXTROSE 5%-WATER - 50 ML IVPB ONE ×2 (07:47→07:56)
[2020-04-23] MEDS ORDERED: CEFTRIAXONE 1,000 MG in DEXTROSE 5%-WATER - 50 ML IVPB ONE (07:50)
--- NOTE | 2020-04-23 07:55 | PN ---
Teaching Attending Note Name of Resident: Jm Talavera ATTENDING PHYSICIAN STATEMENT I saw and evaluated the patient. I reviewed the resident's note and discussed the case with the resident. I agree with the resident's findings and plan as documented. SUBJECTIVE: Informed by resident that patient is experiencing "rigors." Seen and examined. Patient states that last night around 9:00 she started feeling unwell. Describes diffuse muscle soreness and weakness in her joints and muscles. Is alert and oriented x3, clearheaded and does not appear diaphoretic. Denies significant abdominal pain. Had some mild nausea this morning but no vomiting. Also reports some diarrhea. Denies fevers, cough, but reports pain when she takes a deep breath. On exam has diffuse pain to palpation to all major muscle groups, and is unable to get out of bed due to diffuse weakness. No abdominal tenderness at site of procedure. Morning labs are significant for white count of 8.9 with 66% neutrophils, potassium of 3.4, phosphorus 1.5, creatinine kinase of 150. Patient reports last night she only had clear diet and Jell-O that was provided. Suspect that patient has symptomatic hypophosphatemia possibly due to refeeding syndrome. Will also rule out sepsis with sepsis work-up and give a dose of antibiotics OBJECTIVE Last Vital Signs Temp Pulse Resp BP Pulse Ox 98.2 F 71 20 106/57 L 99 04/22/20 14:31 04/22/20 14:31 04/22/20 14:31 04/22/20 14:31 04/22/20 14:31 PE: Per resident note Labs/Imaging: reviewed ASSESSMENT/PLAN 35-year-old woman with past medical history of intragastric balloon placed this summer with chronic nausea and vomiting since, who presents with increased nausea and vomiting and unable to keep down any food as well as dizziness, lightheadedness and feeling faint. Patient found to have gastric outlet obstruction #Diffuse weakness, muscle pain, ?rigors Concern for refeeding syndrome, acid base disturbance in setting of rapid bicarb change. Described rigors may be muscle spasms Aggressively repleat phosphate, potassium Recheck electrolytes in 4 hours Sepsis work-up We will give 1 dose of antibiotics -abg #Gastric outlet obstruction In the setting of gastric balloon placement. Status post removal 05/02/2029switch to clear liquid diet Patient tolerates clear liquid diet plan for discharge tomorrow Dr. Brown on board: Appreciate recommendations #Hypokalemia 2/2 GI losses -replete -f/u K+ #Elevated bicarb (likely metabolic alcalosis -likely 2/2 GI losses -trend bicarb, if downtrending no need for further workup -replete fluids/chloride DVTppx: not indicated 2/2 age
[2020-04-23] MEDS ORDERED: VANCOMYCIN 1 GRAM (PRE-DOCKED) 1,000 MG/250 ML BAG IVPB ONE (09:00)
[2020-04-23] MEDS ORDERED: POTASSIUM PHOSPHATE 30 MM in SODIUM CHLORIDE 500 ML IVPB ONE (09:00)
[2020-04-23] MEDS ORDERED: DEXTROSE 5%-WATER - 50 ML IVPB ONE (09:13)
[2020-04-23] MEDS ORDERED: PIPERACILLIN/TAZOBACTAM 3.375 GM VIAL IVPB ONE (09:13)
[2020-04-23] MEDS: PANTOPRAZOLE SODIUM 40 MG VIAL IVPUSH SCH (09:19)
[2020-04-23 09:20] LABS: ARTERIAL BLD GAS O2 SATURATION 97.8 mmHg (95-98); ARTERIAL BLOOD GAS BASE EXCESS 1.8 mmol/L (-2-2); ARTERIAL BLOOD GAS pH 7.449 (7.350-7.450)
[2020-04-23] MEDS: LACTATED RINGERS SOLUTION 1,000 ML IV SCH (09:20)
[2020-04-23] MEDS: NICOTINE 7 MG/24 HOURS TOPICAL PATCH TD SCH (09:36)
--- NOTE | 2020-04-23 10:32 | EKG ---
Test Reason : Blood Pressure : / mmHG Vent. Rate : 055 BPM Atrial Rate : 055 BPM P-R Int : 160 ms QRS Dur : 082 ms QT Int : 472 ms P-R-T Axes : 068 -03 030 degrees QTc Int : 451 ms SINUS BRADYCARDIA OTHERWISE NORMAL ECG Confirmed by CANDY CLINE MD ([id number]) on 04/23/2020 10:31:35 AM Referred By: Confirmed By:CANDY CLINE MD
[2020-04-23] MEDS ORDERED: KETOROLAC TROMETHAMINE 15 MG/ML VIAL IM ONE (10:45)
[2020-04-23 12:26] LABS: BASO % 0.3 % (0-2.0); EOS % 1.5 % (0-4.5); HEMOGLOBIN 11.3 GM/dL (10.7-15.3); LYMPH % 34.6 % (8-40); MCH 28.7 pg (25.7-33.7); MCHC 33.2 g/dl (32.0-36.0); MEAN CELL VOLUME 86.4 fl (80-96); MEAN PLT VOLUME 11.3 fl (7.5-11.1); MONO % 5.8 % (3.8-10.2); NEUT % 57.8 % (42.8-82.8); PLATELET COUNT 127 K/MM3 (134-434); RBC 3.94 M/mm3 (3.60-5.2); RDW 15.5 % (11.6-15.6); WHITE BLOOD COUNT 6.6 K/mm3 (4.0-10.0)
[2020-04-23 12:51] LABS: ALBUMIN 2.8 g/dl (3.4-5.0); BILIRUBIN,TOTAL 0.6 mg/dL (0.2-1); BLOOD UREA NITROGEN 5.3 mg/dL (7-18); CALCIUM 7.7 mg/dL (8.5-10.1); CREATININE 0.7 mg/dL (0.55-1.3); MAGNESIUM 1.8 mg/dL (1.8-2.4); PHOSPHOROUS 3.5 mg/dL (2.5-4.9); POTASSIUM 3.6 mmol/L (3.5-5.1); TOT PROT 5.7 g/dl (6.4-8.2)
[2020-04-23 13:44] LABS: PH,URINE >= 9.0 (5.0-8.0); URINE APPEARANCE CLOUDY; URINE BILIRUBIN NEGATIVE (NEGATIVE); URINE COLOR YELLOW; URINE GLUCOSE (UA) NEGATIVE (NEGATIVE); URINE KETONE NEGATIVE (NEGATIVE); URINE LEUK ESTERASE NEGATIVE (NEGATIVE); URINE NITRITE NEGATIVE (NEGATIVE); URINE PROTEIN NEGATIVE (NEGATIVE)
[2020-04-23 14:32] VITALS: BMI 42.5
[2020-04-23] MEDS: LACTATED RINGERS SOLUTION 1,000 ML/1,000 ML INFUS.BAG IV SCH (15:58)
--- NOTE | 2020-04-23 16:05 | PN ---
Physical Exam: SUBJECTIVE: Patient seen and examined at bedside. Examined this am. C/o generalized muscle stiffness and pain. Pain described as " stiffness" and " lightening" sensation. POD#1 Gastric balloon removal. OBJECTIVE: Vital Signs Period Temp Pulse Resp BP Sys/Chamorro Pulse Ox Last 24 Hr 97.9 F-98.6 F 56-77 20-25 92-127/48-91 100-100 Moderate distress AT/NC. RRR No MRG S1S2 CTAB No wheezing rales or rhonchi Neuro: Strength 5/5 upper and lower extremities. Reflexes 2+ upper extrem. 2+ both lower extrem. Gait assessed: initially stiff legged. Walks on heels and toes. Romberg negative. NDNT, No guarding or rigidity. No CCE Laboratory Results - last 24 hr 04/23/20 04/23/20 04/23/20 06:00 06:00 09:04 WBC 8.9 RBC 4.47 Hgb 12.6 Hct 38.0 MCV 85.1 MCH 28.2 MCHC 33.1 RDW 15.6 Plt Count 153 MPV 11.7 H Absolute Neuts (auto) 5.9 Neutrophils % 66.1 Lymphocytes % 25.6 Monocytes % 7.2 Eosinophils % 0.7 Basophils % 0.4 Nucleated RBC % 0 Anticoagulation Therapy No Result Required. Puncture Site No Result Required. Patient Temperature No Result Required. ABG pH 7.449 ABG pCO2 38.00 ABG pO2 100.0 ABG HCO3 25.8 ABG O2 Sat (Measured) 97.8 ABG O2 Content No Result Required. ABG Base Excess 1.8 Harley Test No Result Required. Patient On Oxygen Yes O2 Delivery Device Nc Oxygen Flow Rate 2l Vent Mode No Result Required. Vent Rate No Result Required. Mechanical Rate No Result Required. PEEP No Result Required. Pressure Support Vent No Result Required. Sodium 141 Potassium 3.4 L Chloride 105 Carbon Dioxide 29 Anion Gap 7 L BUN 4.9 L Creatinine 0.6 Est GFR (CKD-EPI)AfAm 136.87 Est GFR (CKD-EPI)NonAf 118.09 Random Glucose 96 Lactic Acid Calcium 8.1 L Phosphorus 1.5 L Magnesium 1.8 Total Bilirubin 0.4 AST 20 ALT 29 Alkaline Phosphatase 54 Creatine Kinase 150 Creatine Kinase Index No Result Required. CK-MB (CK-2) < 1.0 Total Protein 6.6 Albumin 3.2 L Urine Color Urine Appearance Urine pH Ur Specific [place] Urine Protein Urine Glucose (UA) Urine Ketones Urine Blood Urine Nitrite Urine Bilirubin Urine Urobilinogen Ur Leukocyte Esterase 04/23/20 04/23/20 04/23/20 11:56 11:56 11:56 WBC 6.6 RBC 3.94 Hgb 11.3 Hct 34.0 MCV 86.4 MCH 28.7 MCHC 33.2 RDW 15.5 Plt Count 127 L MPV 11.3 H Absolute Neuts (auto) 3.8 Neutrophils % 57.8 Lymphocytes % 34.6 D Monocytes % 5.8 Eosinophils % 1.5 D Basophils % 0.3 Nucleated RBC % 0 Anticoagulation Therapy Puncture Site Patient Temperature ABG pH ABG pCO2 ABG pO2 ABG HCO3 ABG O2 Sat (Measured) ABG O2 Content ABG Base Excess Harley Test Patient On Oxygen O2 Delivery Device Oxygen Flow Rate Vent Mode Vent Rate Mechanical Rate PEEP Pressure Support Vent Sodium 140 Potassium 3.6 Chloride 106 Carbon Dioxide 28 Anion Gap 6 L BUN 5.3 L Creatinine 0.7 Est GFR (CKD-EPI)AfAm 130.10 Est GFR (CKD-EPI)NonAf 112.25 Random Glucose 120 H Lactic Acid 1.1 Calcium 7.7 L Phosphorus 3.5 Magnesium 1.8 Total Bilirubin 0.6 AST 15 ALT 26 Alkaline Phosphatase 46 Creatine Kinase Creatine Kinase Index CK-MB (CK-2) Total Protein 5.7 L Albumin 2.8 L Urine Color Urine Appearance Urine pH Ur Specific [place] Urine Protein Urine Glucose (UA) Urine Ketones Urine Blood Urine Nitrite Urine Bilirubin Urine Urobilinogen Ur Leukocyte Esterase 04/23/20 12:25 WBC RBC Hgb Hct MCV MCH MCHC RDW Plt Count MPV Absolute Neuts (auto) Neutrophils % Lymphocytes % Monocytes % Eosinophils % Basophils % Nucleated RBC % Anticoagulation Therapy Puncture Site Patient Temperature ABG pH ABG pCO2 ABG pO2 ABG HCO3 ABG O2 Sat (Measured) ABG O2 Content ABG Base Excess Harley Test Patient On Oxygen O2 Delivery Device Oxygen Flow Rate Vent Mode Vent Rate Mechanical Rate PEEP Pressure Support Vent Sodium Potassium Chloride Carbon Dioxide Anion Gap BUN Creatinine Est GFR (CKD-EPI)AfAm Est GFR (CKD-EPI)NonAf Random Glucose Lactic Acid Calcium Phosphorus Magnesium Total Bilirubin AST ALT Alkaline Phosphatase Creatine Kinase Creatine Kinase Index CK-MB (CK-2) Total Protein Albumin Urine Color Yellow Urine Appearance Cloudy Urine pH >= 9.0 H Ur Specific [place] 1.013 Urine Protein Negative Urine Glucose (UA) Negative Urine Ketones Negative Urine Blood Negative Urine Nitrite Negative Urine Bilirubin Negative Urine Urobilinogen 1.0 Ur Leukocyte Esterase Negative Active Medications Generic Name Dose Route Start Last Admin Trade Name Julia PRN Reason Stop Dose Admin Fentanyl 50 mcg 04/22/20 08:13 Sublimaze Injection - IVPUSH [id number] PRN PAIN-PACU ORDER X 4 DOSES ONLY Lactated Ringer's 1,000 ml in 1,000 mls @ 100 mls/hr 04/23/20 15:45 04/23/20 15:58 Lactated Ringers Solution IV 100 mls/hr ASDIR ÓSCAR Administration Nicotine 7 mg 04/22/20 16:45 04/23/20 09:36 Nicoderm Patch - TD 7 mg DAILY ÓSCAR Administration Ondansetron HCl 4 mg 04/22/20 08:13 Zofran Injection IVPUSH Q6H PRN NAUSEA AND/OR VOMITING Pantoprazole Sodium 40 mg 04/23/20 10:00 04/23/20 09:19 Protonix Iv IVPUSH 40 mg DAILY ÓSCAR Administration ASSESSMENT/PLAN: Sandro Hermosillo is a 35 year old woman no prior PMH who is presenting with worsening nausea and vomiting and CT scan revealing overdistended balloon in stomach, admitted with gastric outlet obstruction. #Gastric outlet obstruction s/p intragastric balloon removal - CT revealing overdistended balloon in stomach -POD#1. #Restless Leg Syndrome exacerbated by Metoclopromide -Patient with generalized muscle pain commencing early this am. Labs revealed a Phosphate of 1.5. Repleted. Repeat 3.5. CK WNL -Examined by Neurologist Dr Campbell. Upon further questioning, patient endorsed h/o bruxism and migraine headaches. Published in [employer] Journal entitled " Primary Restless Limbs Syndrome, Migraine, and Bruxism: A Common Clinical Triad." -Will administer one time dose pramipexole now and then another dose at bedtime 0.125. #Hypokalemia -Replete PRN #Hypophosphatemia -Replete PRN DVT prophylaxis: SCDs FEN - LR@150cc/hr - Monitor Electrolytes - Clears Dispo: Likely D/C in am Visit type - Emergency Visit Emergency Visit: Yes ED Registration Date: 04/21/20 Care time: The patient presented to the Emergency Department on the above date and was hospitalized for further evaluation of their emergent condition. - New Patient This patient is new to me today: No - Critical Care Critical Care patient: No ATTENDING PHYSICIAN STATEMENT I saw and evaluated the patient. I reviewed the resident's note and discussed the case with the resident. I agree with the resident's findings and plan as documented. SUBJECTIVE: OBJECTIVE: ASSESSMENT AND PLAN:
--- NOTE | 2020-04-23 17:43 | CONSULT ---
Consult - text type - Consultation Consultation Note: NEUROLOGY CONSULTATION is greatly appreciated: Events reviewed and discussed with Dr. Talavera. Patient examined with her father at the bedside. This 35 yo RH woman with two daughters 16, 12 is s/p gastric balloon for weight loss, removed yesterday. PMH sig for episodic headaches since menarche. + Catamenial. Present in AM. Throbbing right temporal and occipital headaches with N, V, Photophobia and phonophobia. Treated by going to bed. +FH of VIRAMONTES's in her Mom, Sister and 12 yo daughter. 16 YO daughter has growing pains. Pt has chronically poor sleep with episodic numbness and tingling in both legs. +Nocturnal and diurnal bruxism. Patient can awaken with Jaw pain. Last PM received metachlopramide around 5 PM. A few hours later she developed tightness, tingling and electrical sensations in her arms and legs. CK normal. Redosed with metachlopramide at 600 this AM. GPR: Neck supple. Cor reg NEURO: MS, Speech: Normal CN: II-XII: Normal Motor: Normal strength and tone. Normal reflexes. Toes downgoing Coord: No FTN dystaxia Sensory: Normal. Romberg neg Gait: Gets OO Bed s assist. Initially stiff-legged. Walks on heals and toes. IMP: Normal Neurological Exam Restless Limbs Syndrome exacerbated by Metachlopramide (Dopamine blockade). Migraine headaches/ Bruxism SUGGEST: No metaclopramide Check Fe ++, TIBC, Ferritin levels Give pramipexole 0.125 mg now and at bedtime- Patient should be fine for D/C in AM Neuro f/u as out patient Thank you very much, Abdias Campbell MD
[2020-04-23] MEDS: PRAMIPEXOLE DIHYDROCHLORIDE 0.125 MG TABLET PO SCH ×2 (18:04→21:54)
[2020-04-23 19:02] LABS: ALBUMIN 3.1 g/dl (3.4-5.0); BILIRUBIN,TOTAL 0.4 mg/dL (0.2-1); CREATININE 0.9 mg/dL (0.55-1.3); MAGNESIUM 1.7 mg/dL (1.8-2.4); PHOSPHOROUS 5.5 mg/dL (2.5-4.9); POTASSIUM 3.5 mmol/L (3.5-5.1); TOT PROT 6.1 g/dl (6.4-8.2)
[2020-04-23] MEDS ORDERED: ACETAMINOPHEN 1000 MG/100 ML VIAL (NON FORMULARY) IVPB ONE (21:55)
[2020-04-23] MEDS ORDERED: PRAMIPEXOLE DIHYDROCHLORIDE 0.125 MG TABLET PO ONE (22:00)
[2020-04-24 06:43] LABS: BASO % 0.6 % (0-2.0); EOS % 2.6 % (0-4.5); HEMATOCRIT 38.3 % (32.4-45.2); HEMOGLOBIN 12.2 GM/dL (10.7-15.3); LYMPH % 15.7 % (8-40); MCH 27.4 pg (25.7-33.7); MCHC 31.8 g/dl (32.0-36.0); MEAN CELL VOLUME 86.2 fl (80-96); MEAN PLT VOLUME 10.8 fl (7.5-11.1); MONO % 9.5 % (3.8-10.2); NEUT % 71.6 % (42.8-82.8); PLATELET COUNT 128 K/MM3 (134-434); RBC 4.44 M/mm3 (3.60-5.2); RDW 15.9 % (11.6-15.6); WHITE BLOOD COUNT 8.2 K/mm3 (4.0-10.0)
[2020-04-24 07:24] LABS: ALBUMIN 2.4 g/dl (3.4-5.0); BILIRUBIN,TOTAL 0.6 mg/dL (0.2-1); BLOOD UREA NITROGEN 7.4 mg/dL (7-18); CALCIUM 7.5 mg/dL (8.5-10.1); MAGNESIUM 1.5 mg/dL (1.8-2.4); PHOSPHOROUS 5.4 mg/dL (2.5-4.9); POTASSIUM 4.1 mmol/L (3.5-5.1); TOT PROT 4.9 g/dl (6.4-8.2)
[2020-04-24] MEDS: PANTOPRAZOLE SODIUM 40 MG VIAL IVPUSH SCH (10:21)
[2020-04-24] MEDS: NICOTINE 7 MG/24 HOURS TOPICAL PATCH TD SCH (10:21)
[2020-04-24] MEDS ORDERED: MAGNESIUM 2GM/50ML STERILE WATER IVPB IVPB ONE (10:30)
[2020-04-24] MEDS ORDERED: ONDANSETRON 4 MG/2 ML VIAL IVPUSH PRN (11:14)
[2020-04-24] MEDS: LACTATED RINGERS SOLUTION 1,000 ML/1,000 ML INFUS.BAG IV SCH ×2 (12:16→19:01)
[2020-04-24 12:48] VITALS: BP 117/73
--- NOTE | 2020-04-24 14:45 | PN.GI ---
GI Progress Note Subjective: tolerating clears. myalgia improved,ambulating better - Objective Vital Signs: Vital Signs Temperature 98.5 F 04/24/20 10:00 Pulse Rate 65 04/24/20 10:00 Respiratory Rate 18 04/24/20 10:00 Blood Pressure 117/73 04/24/20 10:00 O2 Sat by Pulse Oximetry (%) 97 04/24/20 10:00 Constitutional: Well Nourished Eyes: Yes: Conjunctiva Clear HENT: Yes: Atraumatic Neck: Yes: Supple Cardiovascular: Yes: Regular Rate and Rhythm Respiratory: Yes: CTA Bilaterally ...Palpate: No: Firm/Rigid, Guarding, Hepatomegaly, Mass, Pulsatile Mass, Splenomegaly, Tenderness Labs: CBC, BMP 04/24/20 06:35 04/24/20 06:35 Problem List - Problems (1) Gastric outlet obstruction Assessment/Plan: resolved R> advance diet as tolerated Code(s): K31.1 - ADULT HYPERTROPHIC PYLORIC STENOSIS (2) Extrapyramidal and movement disorder Assessment/Plan: exacerbated by Reglan, patient and her father made aware R>made aware to follow up with Dr Campbell Ok to discharge if patient is able to ambulate with out assistance Code(s): G25.9 - EXTRAPYRAMIDAL AND MOVEMENT DISORDER, UNSPECIFIED
[2020-04-24 14:46] VITALS: PULSE 79; TEMP 97.8
--- NOTE | 2020-04-24 16:23 | CONSULT ---
Consult - text type - Consultation Consultation Note: NEUROLOGY PROGRESS Events reviewed. Patient examined with father at the bedside. Pt found sitting in chair. Much more comfortable Some complaints of stiffness and aching erick, shulders. No longer with electrical shocks. Able to walk without assistance. Going home after magnesium infusion. Slept well last night after pramipexole. Tolerating Rx without difficulty: No Nausea, GI upset. EXAM: Normal aside from stiffness of gait. IMP: Exacerbation of RLS due to metaclopramide. SUGGEST: Increase pramipexole to 0.25 mg PO after breakfast and dinner Neuro f/u as out patient. Thank you very much, Abdias Campbell MD
--- NOTE | 2020-04-24 17:50 | DS ---
Physical Exam: SUBJECTIVE: Patient seen and examined. Noted to have significant nausea without emesis this AM and did not eat breakfast. Throughout the day she has tolerated clears and even softs. Feels improved in the afternoon. OBJECTIVE: Vital Signs Period Temp Pulse Resp BP Sys/Chamorro Pulse Ox Last 24 Hr 97.7 F-98.9 F 60-79 18-20 91-117/57-73 97-100 PHYSICAL EXAM GENERAL: The patient is awake, alert, and fully oriented, in no acute distress. HEENT: NC/At, EOMI, TERESA, sclera anicteric, MMM LUNGS: CTA bilaterally, no wheezes, no crackles, no accessory muscle use. HEART: RRR, S1, S2 without murmur ABDOMEN: Soft, nondistended, diffuse mild discomfort in all four quadrants howev er improved, normoactive BS, no guarding, no hepatomegaly EXTREMITIES: 2+ pulses, warm, well-perfused, no edema. SKIN: Warm, dry, no rashes or lesions noted. LABS Laboratory Results - last 24 hr 04/23/20 04/23/20 04/24/20 11:56 17:45 06:35 WBC 8.2 RBC 4.44 Hgb 12.2 Hct 38.3 MCV 86.2 MCH 27.4 MCHC 31.8 L RDW 15.9 H Plt Count 128 L MPV 10.8 Absolute Neuts (auto) 5.9 Neutrophils % 71.6 D Lymphocytes % 15.7 D Monocytes % 9.5 Eosinophils % 2.6 Basophils % 0.6 Nucleated RBC % 0 Sodium 140 Potassium 3.5 Chloride 104 Carbon Dioxide 28 Anion Gap 8 BUN 5.0 L Creatinine 0.9 Est GFR (CKD-EPI)AfAm 96.01 Est GFR (CKD-EPI)NonAf 82.84 Random Glucose 83 Calcium 8.0 L Phosphorus 5.5 H Magnesium 1.7 L Iron 86 TIBC 229 L Iron Saturation 37 Unsaturated IBC 143 L Ferritin 187.3 Total Bilirubin 0.4 AST 18 ALT 29 Alkaline Phosphatase 52 Total Protein 6.1 L Albumin 3.1 L 04/24/20 06:35 WBC RBC Hgb Hct MCV MCH MCHC RDW Plt Count MPV Absolute Neuts (auto) Neutrophils % Lymphocytes % Monocytes % Eosinophils % Basophils % Nucleated RBC % Sodium 139 Potassium 4.1 Chloride 106 Carbon Dioxide 26 Anion Gap 7 L BUN 7.4 Creatinine 2.0 H Est GFR (CKD-EPI)AfAm 36.56 Est GFR (CKD-EPI)NonAf 31.55 Random Glucose 92 Calcium 7.5 L Phosphorus 5.4 H Magnesium 1.5 L Iron TIBC Iron Saturation Unsaturated IBC Ferritin Total Bilirubin 0.6 AST 16 ALT 23 Alkaline Phosphatase 47 Total Protein 4.9 L Albumin 2.4 L IMAGING: CT A/P: Impression: An inflated balloon is present in the stomach densities over distended with dense oral contrast is seen in the gastric fundus. Diverticulosis coli without evidence of acute diverticulitis. IUD in place. 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 Upon further review of the images, the hyperdense oral contrast in the gastric antrum is due to recent intake of a small amount of oral contrast that is not extending to the gastric antrum or beyond the level of the balloon suggestive of obstruction at the level of the balloon. GI consult is suggested HOSPITAL COURSE: Date of Admission:04/21/20 Date of Discharge: 04/24/20 Pt admitted due to acute on chronic nausea and vomiting noted to have gastric outlet obstruction related to overdistended intragastric balloon. In addition, pt had electrolyte abnormalities related to her severe vomiting. Pt had successful endoscopy with Dr. Hayes for deflation of intragastric balloon and retrieval. Post-procedurally patient continued to have nausea and vomiting, however it was noted she developed worsening electrolyte abnormalities suspicious for refeeding syndrome. Patient eventually was able to tolerate solid food with stable electrolytes and is ready for discharge. Patient noted on today's lab to have Cr 2.0 with previous Cr 0.5-0.9 throughout her stay. She received 8 hours of IVF and two complete meals without symptoms afterwards. Likely this is inaccurate vs. related to her dry heaving this morning, and after lengthy discussion with her and family member at bedside, pt would like to follow-up outpatient. She is being discharged today with Zoliban ODT for symptomatic relief and instructions to follow with her PMD within the week for repeat levels. Minutes to complete discharge: 33 Discharge Summary Problems reviewed: Yes Reason For Visit: PYLORIC OBSTRUCTION Current Active Problems Extrapyramidal and movement disorder (Acute) Gastric outlet obstruction (Acute) Condition: Stable - Instructions Diet, Activity, Other Instructions: You were seen here for your increased vomiting and nausea and severe muscle pains. Your electrolytes were very low due to your symptoms and we helped to monitor and correct them. You were started on Pramipexole for restless leg syndrome after being seen by neurology due to your leg discomfort. You are able to tolerate a soft diet and can go back home. MEDICATIONS: Please take Pramipexole 0.125mg TWICE daily after meals Please maintain a soft diet until you are able to tolerate more FOLLOW-UP: Please follow-up with your primary care provider to update them on your care Please follow-up with your child care development specialist to help with your diet and post-balloon care. Referrals: Shruthi Betancourt MD [Primary Care Provider] - Disposition: HOME - Home Medications Comprehensive Discharge Medication List: Ambulatory Orders Metoclopramide HCl 5 mg PO DAILY 04/21/20 Ondansetron [Zofran -] 4 mg PO DAILY 04/21/20 Pantoprazole Sodium 40 mg PO DAILY 04/21/20 Simethicone 80 mg PO DAILY 04/21/20 This patient is new to me today: Yes Date on this admission: 04/24/20 Emergency Visit: Yes ED Registration Date: 04/21/20 Care time: The patient presented to the Emergency Department on the above date and was hospitalized for further evaluation of their emergent condition. Critical Care patient: No - Discharge Referral Referred to [facility] No
[2020-04-24] MEDS ORDERED: PRAMIPEXOLE DIHYDROCHLORIDE 0.25 MG TABLET PO SCH (18:30)
== END 2020-04-24 19:42 | disposition home or self-care (01) | DRG 252 ==
LOC: JER 19:30 → EDBD 19:30 → JERBED 04-21 00:04 → J7W 04-21 04:02
PROVIDERS: ADMIT Hospitalist; ATTEND Internal Medicine
PROC: 0DP68DZ Removal of Intraluminal Device from Stomach, Via Natural or Artificial Opening Endoscopic (ICD-10-PCS; principal; 2020-04-22 07:30)
DX: K95.89 Other complications of other bariatric procedure (principal); F17.210 Nicotine dependence, cigarettes, uncomplicated; K57.90 Diverticulosis of intestine, part unspecified, without perforation or abscess without bleeding; R11.2 Nausea with vomiting, unspecified; E87.6 Hypokalemia; M79.10 Myalgia, unspecified site; G25.9 Extrapyramidal and movement disorder, unspecified; G25.81 Restless legs syndrome; T45.0X5A Adverse effect of antiallergic and antiemetic drugs, initial encounter; E83.39 Other disorders of phosphorus metabolism; E87.1 Hypo-osmolality and hyponatremia; E66.9 Obesity, unspecified; Z68.41 Body mass index [BMI] 40.0-44.9, adult; E87.3 Alkalosis; G43.909 Migraine, unspecified, not intractable, without status migrainosus; Y83.9 Surgical procedure, unspecified as the cause of abnormal reaction of the patient, or of later complication, without mention of misadventure at the time of the procedure
CPT/HCPCS: 36415; 36600; 71045-TC-FY; 74018-TC-FY; 74019-TC-FY; 74177-TC; 80053; 81003; 82550; 82553; 82728; 82803; 83540; 83550; 83605; 83690; 83735; 84100; 84703; 85025; 87040; 87086; 93005; 93010; 99285-25; C9803; J0131; Q9967; U0003